=== PATIENT | male | born 1955 | race Caucasian/White ===

== ENCOUNTER 2023-04-14 11:47 | Inpatient (IN) | payer MEDICARE, OTHER ==
[2023-04-14] VITALS (18 sets, daily range): BP systolic 117–162; BP diastolic 59–96; PULSE 55–85; RESP 9–19; O2SAT 93–96
[~2023-04-14] VITALS: Ht 167.6 cm; Wt 86.0 kg
[~2023-04-14 11:47] MED LIST: LIDOcaine 2% (20 mg/ml) 5ml cardiac syringe ONE; NORepinephrine bitart. inj. IV ONE; VANCOMYCIN 1,500MG in normal saline IV soln 300 ML IV ONE; albumin (human) 25% 100 ML IV solution IV ONE; aminocaproic acid 250 MG/1 ML inj. ONE; calcium chloride 100 MG/1 ML inj IV ONE; furosemide 40mg/4ml inj ONE; heparin 1,000 units/ml 10ml inj ONE; heparin 10,000 units/1 ML INJ ONE; heparin, porcine-25,000 units/D5-250ml premix IV ONE; magnesium sulf 1 GM/2 ML ONE; mannitol 12.5gm/50mL VIAL IV ONE; methylPREDNISolone sod. succ. 500mg inj ONE; sodium bicarbonate (8.4%) 1 mEq/ml syringe ONE
[2023-04-14] MEDS ORDERED: metoprolol tartrate 50mg tablet PO ONE (12:00)
--- NOTE | 2023-04-14 12:03 | NUR ---
HEPARIN IV PREPARED/HUNG P/T PT GOING TO COMBINATION BUILDING INSPECTOR. BOLUS WAS GIVEN HEPARIN DRIP WILL BE STARTED BY COMBINATION BUILDING INSPECTOR. RN UNABLE TO START D/T PT TAKEN TO COMBINATION BUILDING INSPECTOR EMERGENTLY.
--- NOTE | 2023-04-14 12:03 | NUR ---
PT TAKEN TO TELECASTING TECHNICIAN EMERGENTLY LOPRESSOR COULD NOT BE GIVEN D/T THE PT HAD TO GO TO TELECASTING TECHNICIAN. 4000 UNIT BOLUS OF HEPARIN ADMIN P/T BEING TRANSFERRED.
[2023-04-14] MEDS ORDERED: heparin 10,000 units/1 ML INJ IV ONE (12:05)
[2023-04-14] MEDS ORDERED: metoprolol tartrate 25mg tablet PO ONE (12:05)
[2023-04-14] MEDS ORDERED: heparin 25,000 UNIT/250ml bag 250 ML IV PRN ×3 (12:05→15:36)
[2023-04-14 12:10] LABS: BASOPHILS # (AUTO) 0.1 X10'3 (0-0.2); BASOPHILS % (AUTO) 0.6 % (0-1); EOSINOPHILS # (AUTO) 0.1 X10'3 (0-0.9); EOSINOPHILS % (AUTO) 0.8 % (0-6); HEMATOCRIT 44.8 % (42.0-52.0); HEMOGLOBIN 14.9 g/dl (14.0-17.9); LYMPHOCYTES # (AUTO) 0.9 X10'3 (1.1-4.8); LYMPHOCYTES % (AUTO) 7.4 % (21-51); MEAN CORPUSCULAR HEMOGLOBIN 29.6 PG (27.0-31.0); MEAN CORPUSCULAR HGB CONC 33.3 g/dL (33.0-36.5); MEAN CORPUSCULAR VOLUME 88.9 FL (78-98); MEAN PLATELET VOLUME 8.7 FL (7.4-10.4); MONOCYTES # (AUTO) 0.7 X10'3 (0-0.9); MONOCYTES % (AUTO) 5.8 % (2-12); NEUTROPHILS # (AUTO) 10.7 X10'3 (1.8-7.7); NEUTROPHILS % (AUTO) 85.4 % (42-75); PLATELET COUNT 199 X10'3 (140-440); RED BLOOD COUNT 5.04 X10'6 (4.70-6.10); RED CELL DISTRIBUTION WIDTH 13.4 % (11.5-14.5); WHITE BLOOD COUNT 12.6 X10'3 (4.5-11.0)
--- NOTE | 2023-04-14 12:10 | NUR ---
RN UNABLE TO COMPLETE FULL ASSESSMENT D/T PT TAKEN TO METROLOGY MANAGER EMERGENTLY
[2023-04-14] MEDS ORDERED: LIDOcaine 1% (10mg/ml)w/preservative inj. 20ml MDV ONE (12:18)
[2023-04-14] MEDS ORDERED: fentaNYL/PF 50MCG/1 ML 2ML syringe ONE ×2 (12:21→14:41)
[2023-04-14] MEDS ORDERED: midazolam 1 mg/ML 2ml injection ONE ×2 (12:21→14:41)
[2023-04-14] MEDS ORDERED: iohexol 350MG/ML 100ml bottle IV ONE ×3 (12:24→14:41)
[2023-04-14 12:40] LABS: ALANINE AMINOTRANSFERASE 32 U/L (12-78); ALBUMIN 3.9 G/DL (3.4-5.0); ALBUMIN/GLOBULIN RATIO 1.1 (1.1-1.5); ALKALINE PHOSPHATASE 76 IU/L (46-116); ANION GAP 10 (8-16); ASPARTATE AMINO TRANSFERASE 28 U/L (10-37); BILIRUBIN,TOTAL 0.7 MG/DL (0.1-1.0); BLOOD UREA NITROGEN 23 MG/DL (7-18); BUN/CREATININE RATIO 19.5 (10.0-20.0); CALCIUM 9.9 MG/DL (8.5-10.1); CHLORIDE 102 MMOL/L (99-107); CREATININE 1.18 MG/DL (0.60-1.10); GLUCOSE 159 MG/DL (70-104); PRO BRAIN NATRIURETIC PEPTIDE 678 PG/ML (0-125); SODIUM 139 MMOL/L (135-145); TOTAL CARBON DIOXIDE 26.9 MMOL/L (24-32); TOTAL PROTEIN 7.5 G/DL (6.4-8.2); eCRCL 57 ML/MIN; eGFR 61 ML/MIN
[2023-04-14 12:46] LABS: POTASSIUM 2.9 MMOL/L (3.5-5.1)
[2023-04-14] MEDS ORDERED: potassium Cl 20mEq/100mL bag 100 ML IV ONE (12:46)
[2023-04-14] MEDS ORDERED: LIDOcaine 1% (10mg/ml) 2ml vial ONE (14:40)
[2023-04-14] MEDS ORDERED: verapamil 2.5 mg/ml inj IV ONE (14:40)
[2023-04-14] MEDS ORDERED: heparin 1,000unit/ml 10ml vial 10 ML ONE (14:41)
[2023-04-14] MEDS ORDERED: nitroGLYCERIN 500mcg/5mL D5W 5 ML IV ONE (14:41)
[2023-04-14] MEDS ORDERED: heparin 10,000 units/1 ML INJ IV PRN (14:55)
[2023-04-14] MEDS ORDERED: potassium Cl 20 mEq SR tablet PO PRN (15:10)
[2023-04-14] MEDS ORDERED: MESSAGE TO NURSING PO ONE ×4 (15:10)
[2023-04-14] MEDS ORDERED: magnesium 4gm in 100ml NS 100 ML IV PRN (15:10)
[2023-04-14] MEDS ORDERED: potassium CL 10mEq/100ml bag 100 ML IV PRN (15:10)
[2023-04-14] MEDS ORDERED: potassium Cl 40MEQ/270ML bag 250 ML IV PRN (15:10)
[2023-04-14] MEDS ORDERED: potassium Cl 40MEQ/1/2NS 520ml 520 ML IV PRN (15:10)
[2023-04-14] MEDS ORDERED: potassium Cl 20mEq/100mL bag 100 ML IV PRN (15:10)
[2023-04-14] MEDS ORDERED: magnesium 2GM in 50ml NS 50 ML IV PRN (15:10)
[2023-04-14] MEDS ORDERED: normal saline 1000ml 1,000 ML IV SCH (15:15)
[2023-04-14] MEDS ORDERED: vancomycin/NS 1 GM ADD-VANTAGE 250 ML IV ONE (15:20)
[2023-04-14 15:41] LABS: BASOPHILS # (AUTO) 0.1 X10'3 (0-0.2); BASOPHILS % (AUTO) 0.5 % (0-1); EOSINOPHILS % (AUTO) 0.1 % (0-6); HEMOGLOBIN 14.4 g/dl (14.0-17.9); LYMPHOCYTES # (AUTO) 0.6 X10'3 (1.1-4.8); LYMPHOCYTES % (AUTO) 4.5 % (21-51); MEAN CORPUSCULAR HEMOGLOBIN 29.6 PG (27.0-31.0); MEAN CORPUSCULAR HGB CONC 33.4 g/dL (33.0-36.5); MEAN CORPUSCULAR VOLUME 88.5 FL (78-98); MEAN PLATELET VOLUME 8.7 FL (7.4-10.4); MONOCYTES # (AUTO) 0.4 X10'3 (0-0.9); MONOCYTES % (AUTO) 3.1 % (2-12); NEUTROPHILS % (AUTO) 91.8 % (42-75); PLATELET COUNT 172 X10'3 (140-440); RED BLOOD COUNT 4.86 X10'6 (4.70-6.10); RED CELL DISTRIBUTION WIDTH 13.6 % (11.5-14.5); WHITE BLOOD COUNT 13.1 X10'3 (4.5-11.0)
[2023-04-14] MEDS ORDERED: aspirin 81mg tab.chew PO ONE (15:45)
[2023-04-14] MEDS ORDERED: ASPI-1071 PO (15:51)
[2023-04-14] MEDS ORDERED: AMLO5TAB16 PO (15:53)
[2023-04-14] MEDS ORDERED: LOSA-415 PO (15:53)
[2023-04-14] MEDS ORDERED: PRAV80TA3 PO (15:53)
[2023-04-14] MEDS ORDERED: LEVO137T2 PO (15:53)
[2023-04-14 16:03] LABS: INR 1.1 INR; PROTHROMBIN TIME 11.3 SECONDS (9.0-12.0)
[2023-04-14] MEDS ORDERED: MESSAGE TO PHARMACY IJ ONE (16:10)
[2023-04-14] MEDS ORDERED: ondansetron 4mg rapidly disintigrating tab PO PRN (16:10)
[2023-04-14] MEDS ORDERED: TERA1CAP4 PO (16:21)
[2023-04-14] MEDS ORDERED: ringers solution, lacted 1,000 ML IV ONE (16:55)
--- NOTE | 2023-04-14 18:02 | NUR ---
Called Dr. Hamilton patton at [phone] 04/15/23
--- NOTE | 2023-04-14 18:05 | NUR ---
Problems reprioritized. Patient report given, questions answered & plan of care reviewed with Andie CHAN.
[2023-04-14 18:29] LABS: ALANINE AMINOTRANSFERASE 35 U/L (12-78); ALBUMIN 3.6 G/DL (3.4-5.0); ALKALINE PHOSPHATASE 77 IU/L (46-116); ANION GAP 10 (8-16); ASPARTATE AMINO TRANSFERASE 58 U/L (10-37); BILIRUBIN,TOTAL 0.5 MG/DL (0.1-1.0); BLOOD UREA NITROGEN 16 MG/DL (7-18); BUN/CREATININE RATIO 17.2 (10.0-20.0); CALCIUM 9.1 MG/DL (8.5-10.1); CHLORIDE 105 MMOL/L (99-107); CREATININE 0.93 MG/DL (0.60-1.10); GLUCOSE 101 MG/DL (70-104); POTASSIUM 3.4 MMOL/L (3.5-5.1); SODIUM 140 MMOL/L (135-145); TOTAL PROTEIN 7.2 G/DL (6.4-8.2); eCRCL 68 ML/MIN; eGFR 81 ML/MIN
[2023-04-14] MEDS ORDERED: mupirocin 2% nasal ointment 1gm UD NS SCH (20:00)
[2023-04-14] MEDS: HYDROcodone/acetaminophen 5mg/325mg tablet PO PRN (20:56)
[2023-04-14] MEDS ORDERED: atropine 0.1mg/ml 10ml syringe ONE (20:59)
--- NOTE | 2023-04-14 21:00 | NUR ---
electrolytes replaced per protocol
--- NOTE | 2023-04-14 21:57 | NUR ---
I Have received report and assumed care of a 67 year old male admitted from [facility] on an IABP to the rt groin with 1:1 rate setting. pt is in a sr/sb rate down to lower 50's. Pt is on a heparin drip in place labs sent and will adjust per md orders. Cross and type sent to the lab blood products ready for pts CABG in the am. Pt has a relevant history of HTN, HLD, CAD with a past OR with stents, and back surgery. Pt had a syncope episode today while camping. Pt fell striking his face on the pavement, pts eyes are equile and symmetrical. Hand pole peeler equile in strength and quality. Distal pulses palp bilate. 1999 pt complaining of shoulder pain, spoke to Dr. Villasenor, orders received for [place] 5/325 po q 6 hours. Addendum: 04/15/23 at 0018 by Mai Mckee RN I received report at 1830 on Apr 14 2023
--- NOTE | 2023-04-14 22:30 | NUR ---
Pt had a brief moment of dizzyness, heart rate dropped to 40 remained in SB. denied chest pain and discomfort. this lasted only about 2 min, no ekg changes noted
[2023-04-14 23:42] LABS: ABG BASE EXCESS -1.9 mmol/L (-2.0-2.0); ABG HCO3 22.1 mmol/L (22.0-26.0); ABG OXYGEN SATURATION 98.2 % (94-97); ABG PCO2 (T) 36.8 mmHg (35.0-48.0); ABG PO2 (T) 113.1 mmHg (75.0-100.0); ALLEN'S TEST POSITIVE; FCOHb 0.6 % (0.0-3.9); FHHb 1.8 % (0.0-5.0); FLOW 2 L/min; FMetHb 0.3 % (0.0-1.5); FO2Hb 97.3 % (94-97); MODE NASAL CANNULA; PATIENT TEMPERATURE 37.6; TOTAL HEMOGLOBIN 14.2 G/dl (14.0-17.9)
[2023-04-15] VITALS (29 sets, daily range): BP systolic 97–145; BP diastolic 48–83; PULSE 55–68; RESP 10–18; O2SAT 93–100
[2023-04-15 02:07] LABS: BASOPHILS # (AUTO) 0.1 X10'3 (0-0.2); BASOPHILS % (AUTO) 0.7 % (0-1); EOSINOPHILS % (AUTO) 0.1 % (0-6); HEMATOCRIT 39.8 % (42.0-52.0); HEMOGLOBIN 13.5 g/dl (14.0-17.9); LYMPHOCYTES # (AUTO) 1.4 X10'3 (1.1-4.8); LYMPHOCYTES % (AUTO) 11.5 % (21-51); MEAN CORPUSCULAR HEMOGLOBIN 29.9 PG (27.0-31.0); MEAN CORPUSCULAR HGB CONC 33.8 g/dL (33.0-36.5); MEAN CORPUSCULAR VOLUME 88.5 FL (78-98); MEAN PLATELET VOLUME 8.7 FL (7.4-10.4); MONOCYTES # (AUTO) 0.7 X10'3 (0-0.9); MONOCYTES % (AUTO) 5.8 % (2-12); NEUTROPHILS # (AUTO) 9.8 X10'3 (1.8-7.7); NEUTROPHILS % (AUTO) 81.9 % (42-75); PLATELET COUNT 165 X10'3 (140-440); RED CELL DISTRIBUTION WIDTH 13.8 % (11.5-14.5)
[2023-04-15 02:20] LABS: ALANINE AMINOTRANSFERASE 35 U/L (12-78); ALBUMIN 3.3 G/DL (3.4-5.0); ALKALINE PHOSPHATASE 67 IU/L (46-116); ANION GAP 9 (8-16); ASPARTATE AMINO TRANSFERASE 100 U/L (10-37); BILIRUBIN,TOTAL 0.6 MG/DL (0.1-1.0); BLOOD UREA NITROGEN 16 MG/DL (7-18); BUN/CREATININE RATIO 17.8 (10.0-20.0); CALCIUM 9.2 MG/DL (8.5-10.1); CHLORIDE 106 MMOL/L (99-107); GLUCOSE 111 MG/DL (70-104); MAGNESIUM 2.1 MG/DL (1.5-2.4); PHOSPHORUS 3.8 MG/DL (2.3-4.5); POTASSIUM 3.9 MMOL/L (3.5-5.1); SODIUM 139 MMOL/L (135-145); TOTAL CARBON DIOXIDE 24.5 MMOL/L (24-32); TOTAL PROTEIN 6.6 G/DL (6.4-8.2); eCRCL 70 ML/MIN; eGFR 84 ML/MIN
[2023-04-15] MEDS: HYDROcodone/acetaminophen 5mg/325mg tablet PO PRN (02:27)
[2023-04-15] MEDS: Insulin Reg/NS 100units/100mL 100 ML IV SCH (05:30)
[2023-04-15] MEDS ORDERED: dextrose 50%-water 50ml dispensing syringe IV PRN ×2 (05:30→12:15)
[2023-04-15] MEDS ORDERED: insulin glargine (Lantus) pen - multi-dose SQ PRN ×2 (05:30→12:15)
[2023-04-15] MEDS ORDERED: ceFAZolin inj. 2,000 MG in dextrose 5%-water 100 ML IV ONE (05:30)
[2023-04-15] MEDS ORDERED: LORazepam 2 mg/ml vial IV ONE (06:00)
--- NOTE | 2023-04-15 06:06 | NUR ---
chlorhexidine bath given after hair clip removal. pt medicated as needed for pain.
--- NOTE | 2023-04-15 06:16 | NUR ---
report given to rec rn plan of care reviewed
--- NOTE | 2023-04-15 06:42 | NUR ---
Patient in room CICU 2014. I have received report from ROCIO uAgustin and had the opportunity to ask questions and assume patient care.
--- NOTE | 2023-04-15 06:43 | NUR ---
Plan - CABG this am. pre-op in process.
[2023-04-15] MEDS ORDERED: ceFAZolin 1000mg inj ONE (06:59)
[2023-04-15] MEDS ORDERED: vancomycin 1,000mg inj ONE ×2 (06:59→07:25)
[2023-04-15] MEDS ORDERED: epiNEPHrine 1 mg/ml inj ONE ×2 (06:59→11:51)
[2023-04-15] MEDS ORDERED: BUPIVAcaine 0.5% inj/PF 30 ML ONE ×2 (06:59→09:17)
[2023-04-15] MEDS ORDERED: BUPIVAcaine 0.5% inj/PF 30 ml vial IJ ONE (07:00)
[2023-04-15] MEDS ORDERED: heparin 10,000 units/1 ML INJ IV ONE (07:00)
[2023-04-15] MEDS ORDERED: ceFAZolin 1000mg inj IR ONE (07:00)
[2023-04-15] MEDS ORDERED: papaverine 30 mg/ml 2ml inj. IA ONE (07:00)
[2023-04-15] MEDS ORDERED: epiNEPHrine 1 MG/ML 1 ml ampule **BRONCH ONLY SQ ONE (07:00)
[2023-04-15] MEDS ORDERED: atorvastatin 20mg tablet PO SCH (08:00)
[2023-04-15] MEDS ORDERED: papaverine 30 mg/ml 2ml inj. ONE (08:00)
[2023-04-15] MEDS ORDERED: heparin 10,000 units/1 ML INJ ONE (08:00)
[2023-04-15] MEDS ORDERED: midazolam 1 mg/ML 2ml injection ONE (08:06)
[2023-04-15] MEDS ORDERED: SUfentanil 50mcg/ml 1ml amp IV ONE (08:06)
--- NOTE | 2023-04-15 08:11 | NUR ---
Patient off to CVOR with CVOR team. Patient stable remained on balloon pump.
[2023-04-15] MEDS ORDERED: isoflurane 100ml inhalation liquid IH ONE (08:15)
[2023-04-15] MEDS ORDERED: protamine sulf. 10mg/ml inj. IV ONE (08:15)
[2023-04-15] MEDS ORDERED: LIDOcaine 2% (20mg/ml) 5ml vial ONE ×2 (08:15→11:51)
[2023-04-15] MEDS ORDERED: nitroGLYCERIN in D5W 50mg/250ml (Tridil) infusion IV ONE (08:15)
[2023-04-15] MEDS ORDERED: amiodarone in dextrose, iso-osm 360mg/200ml bag IV ONE (08:15)
[2023-04-15] MEDS ORDERED: NORepinephrine 8 MG in NS 250 ML BAG (32 mcg/ml) IV ONE (08:15)
[2023-04-15] MEDS ORDERED: aspirin 81mg tab.chew PO SCH (08:30)
[2023-04-15 09:06] LABS: ABG BASE EXCESS -1.4 mmol/L (-2.0-2.0); ABG HCO3 23.5 mmol/L (22.0-26.0); ABG OXYGEN SATURATION 99.4 % (94-97); ABG PCO2 40.2 mmHg (35.0-48.0); ABG PH 7.384 (7.340-7.440); ABG PO2 390.8 mmHg (75.0-100.0); CL (ABG) 105 mmol/L (99-107); FCOHb 0.3 % (0.0-3.9); FHHb 0.6 % (0.0-5.0); FMetHb 0.3 % (0.0-1.5); FO2Hb 98.8 % (94-97); GLUCOSE (ABG) 118 mg/dl (70-104); IONIZED CA (ABG) 1.17 mmol/L (1.10-1.30); K (ABG) 3.3 mmol/L (3.5-5.1); TOTAL HEMOGLOBIN 13.1 G/dl (14.0-17.9)
[2023-04-15] MEDS ORDERED: MESSAGE TO NURSING PO ONE (10:00)
[2023-04-15 10:15] LABS: ABG BASE EXCESS 0.7 mmol/L (-2.0-2.0); ABG HCO3 25.1 mmol/L (22.0-26.0); ABG OXYGEN SATURATION 98.8 % (94-97); ABG PCO2 39.1 mmHg (35.0-48.0); ABG PH 7.425 (7.340-7.440); ABG PO2 362.6 mmHg (75.0-100.0); CL (ABG) 102 mmol/L (99-107); FCOHb 0.2 % (0.0-3.9); FHHb 1.2 % (0.0-5.0); FMetHb 0.3 % (0.0-1.5); FO2Hb 98.3 % (94-97); GLUCOSE (ABG) 107 mg/dl (70-104); K (ABG) 3.4 mmol/L (3.5-5.1); TOTAL HEMOGLOBIN 9.8 G/dl (14.0-17.9)
[2023-04-15] MEDS ORDERED: ipratropium/albuterol 3ml nebule IH PRN (10:25)
[2023-04-15 10:45] LABS: ABG BASE EXCESS VENOUS -3.8 mmol/L (-2.0 - 2.0); ABG HCO3 VENOUS 22.1 mmol/L (21.0-28.0); ABG OXYGEN SATURATION VENOUS 84.1 % (75 - 99 %); ABG PCO2 VENOUS 43.5 mmHg (41.0-54.0); ABG PH (VENOUS) 7.324 (7.310-7.450); ABG PO2 VENOUS 48.1 mmHg (25.0-35.0); CL (ABG) 100 mmol/L (99-107); FCOHb VENOUS 0.3 %; FHHb VENOUS 15.8 %; FMetHb VENOUS 0.3 % (0.0 - 0.5); FO2Hb VENOUS 83.6 %; GLUCOSE (ABG) 139 mg/dl (70-104); IONIZED CA (ABG) 1.09 mmol/L (1.10-1.30); K (ABG) 3.5 mmol/L (3.5-5.1); TOTAL HEMOGLOBIN 10.6 G/dl (14.0-17.9)
[2023-04-15 10:57] LABS: ABG BASE EXCESS -2.2 mmol/L (-2.0-2.0); ABG HCO3 22.7 mmol/L (22.0-26.0); ABG PCO2 39.4 mmHg (35.0-48.0); ABG PH 7.379 (7.340-7.440); CL (ABG) 104 mmol/L (99-107); FCOHb 0.3 % (0.0-3.9); FMetHb 0.3 % (0.0-1.5); FO2Hb 98.4 % (94-97); GLUCOSE (ABG) 163 mg/dl (70-104); IONIZED CA (ABG) 1.06 mmol/L (1.10-1.30); K (ABG) 3.8 mmol/L (3.5-5.1); TOTAL HEMOGLOBIN 10.9 G/dl (14.0-17.9)
[2023-04-15 11:24] LABS: ACT @ 1.70 U 286 SEC (193-297); ACT @ 2.84 U 444 SEC (260-420); BASELINE ACT 142 SEC (101-148)
[2023-04-15 11:29] LABS: ABG BASE EXCESS -4.3 mmol/L (-2.0-2.0); ABG HCO3 21.2 mmol/L (22.0-26.0); ABG OXYGEN SATURATION 88.4 % (94-97); ABG PCO2 40.8 mmHg (35.0-48.0); ABG PH 7.334 (7.340-7.440); ABG PO2 56.4 mmHg (75.0-100.0); CL (ABG) 103 mmol/L (99-107); FCOHb 0.3 % (0.0-3.9); FHHb 11.5 % (0.0-5.0); FMetHb 0.3 % (0.0-1.5); FO2Hb 87.9 % (94-97); GLUCOSE (ABG) 121 mg/dl (70-104); IONIZED CA (ABG) 1.25 mmol/L (1.10-1.30); K (ABG) 3.5 mmol/L (3.5-5.1); TOTAL HEMOGLOBIN 10.8 G/dl (14.0-17.9)
[2023-04-15] MEDS ORDERED: rocuronium 10mg/ml inj IV ONE (11:51)
[2023-04-15] MEDS ORDERED: etomidate 2mg/ml inj. ONE (11:51)
[2023-04-15] MEDS ORDERED: phenylephrine 10mg/ml inj. -priapism dosing ONE (11:51)
[2023-04-15] MEDS ORDERED: acetaminophen 1,000mg/100ml IV 100 ML IV ONE (11:51)
[2023-04-15] MEDS ORDERED: Insulin Reg/NS 100units/100mL 100 ML IV SCH (12:15)
[2023-04-15] MEDS ORDERED: magnesium 4gm in 100ml NS 100 ML IV PRN (12:15)
[2023-04-15] MEDS ORDERED: normal saline 250ml IV soln 250 ML IV PRN (12:15)
[2023-04-15] MEDS ORDERED: potassium Cl 40MEQ/1/2NS 520ml 520 ML IV PRN (12:15)
[2023-04-15] MEDS ORDERED: sodium phosphate inj. 15 MMOL in dextrose 5%-water 250 ML IV PRN (12:15)
[2023-04-15] MEDS ORDERED: morphine 2 MG/ML inj. syringe IV PRN (12:15)
[2023-04-15] MEDS ORDERED: nitroGLYCERIN-Tridil 50MG/D5W 250 ML IV PRN (12:15)
[2023-04-15] MEDS ORDERED: potassium Cl 40MEQ/270ML bag 250 ML IV PRN (12:15)
[2023-04-15] MEDS ORDERED: ondansetron/PF 4mg/2ml inj IV PRN (12:15)
[2023-04-15] MEDS: sodium chloride 0.45% 1,000 ML IV SCH (12:15)
[2023-04-15] MEDS ORDERED: magnesium 2GM in 50ml NS 50 ML IV PRN (12:15)
[2023-04-15] MEDS ORDERED: potassium Cl 20 mEq SR tablet PO PRN (12:15)
[2023-04-15] MEDS ORDERED: magnesium hydroxide 30ml (MOM) UD suspension PO PRN (12:15)
[2023-04-15] MEDS ORDERED: Neutra Phos packet PO PRN (12:15)
[2023-04-15] MEDS ORDERED: niCARDipine-NS 40mg/200ml IVPB 200 ML IV PRN (12:15)
[2023-04-15] MEDS ORDERED: mineral oil 133ml enema RC PRN (12:15)
[2023-04-15] MEDS ORDERED: potassium CL 10mEq/100ml bag 100 ML IV PRN (12:15)
[2023-04-15] MEDS ORDERED: bisacodyl 10mg suppository rectal RC PRN (12:15)
[2023-04-15] MEDS ORDERED: acetaminophen 325mg tablet PO PRN ×2 (12:15)
[2023-04-15] MEDS ORDERED: metoclopramide 5 mg/ml inj IV PRN (12:15)
[2023-04-15] MEDS ORDERED: sodium phosphate inj. 30 MMOL in dextrose 5%-water 250 ML IV PRN (12:15)
--- NOTE | 2023-04-15 12:26 | NUR ---
CABG Consult: Pt s/p CABGx4 today per EMR; would benefit from high protein/heart healthy diet eds once appropriate post-op prior to discharge. Addendum: 04/15/23 at [address] Amended: Links added.
[2023-04-15 12:44] LABS: ABG BASE EXCESS -1.9 mmol/L (-2.0-2.0); ABG HCO3 22.8 mmol/L (22.0-26.0); ABG OXYGEN SATURATION 99.3 % (94-97); ABG PCO2 (T) 36.5 mmHg (35.0-48.0); ABG PH (T) 7.408 (7.340-7.440); ABG PO2 (T) 227.2 mmHg (75.0-100.0); FCOHb 0.1 % (0.0-3.9); FHHb 0.7 % (0.0-5.0); FMetHb 0.3 % (0.0-1.5); FO2Hb 98.9 % (94-97); MODE VENT - SIMV; PATIENT TEMPERATURE 35.8; PEEP 5 cm H2O; RESPIRATORY RATE 12 b/min; TIDAL VOLUME 550 mL; TOTAL HEMOGLOBIN 11.4 G/dl (14.0-17.9)
[2023-04-15 12:58] LABS: BASOPHILS % (AUTO) 0.2 % (0-1); EOSINOPHILS # (AUTO) 0.1 X10'3 (0-0.9); EOSINOPHILS % (AUTO) 0.5 % (0-6); HEMATOCRIT 30.6 % (42.0-52.0); HEMOGLOBIN 10.2 g/dl (14.0-17.9); LYMPHOCYTES # (AUTO) 0.8 X10'3 (1.1-4.8); LYMPHOCYTES % (AUTO) 6.4 % (21-51); MEAN CORPUSCULAR HEMOGLOBIN 29.8 PG (27.0-31.0); MEAN CORPUSCULAR HGB CONC 33.4 g/dL (33.0-36.5); MEAN CORPUSCULAR VOLUME 89.3 FL (78-98); MEAN PLATELET VOLUME 8.6 FL (7.4-10.4); MONOCYTES # (AUTO) 0.8 X10'3 (0-0.9); MONOCYTES % (AUTO) 6.4 % (2-12); NEUTROPHILS # (AUTO) 10.7 X10'3 (1.8-7.7); NEUTROPHILS % (AUTO) 86.5 % (42-75); PLATELET COUNT 108 X10'3 (140-440); RED BLOOD COUNT 3.43 X10'6 (4.70-6.10); RED CELL DISTRIBUTION WIDTH 13.5 % (11.5-14.5); WHITE BLOOD COUNT 12.4 X10'3 (4.5-11.0)
[2023-04-15 13:08] LABS: APTT 30 SECONDS (22-32); FIBRINOGEN 253 MG/DL (177-424); INR 1.2 INR; PROTHROMBIN TIME 12.7 SECONDS (9.0-12.0)
[2023-04-15 13:10] LABS: ALANINE AMINOTRANSFERASE 27 U/L (12-78); ALBUMIN 2.9 G/DL (3.4-5.0); ALBUMIN/GLOBULIN RATIO 1.4 (1.1-1.5); ALKALINE PHOSPHATASE 45 IU/L (46-116); ANION GAP 9 (8-16); ASPARTATE AMINO TRANSFERASE 85 U/L (10-37); BILIRUBIN,TOTAL 1.1 MG/DL (0.1-1.0); BLOOD UREA NITROGEN 14 MG/DL (7-18); BUN/CREATININE RATIO 15.4 (10.0-20.0); CALCIUM 8.6 MG/DL (8.5-10.1); CHLORIDE 108 MMOL/L (99-107); CREATININE 0.91 MG/DL (0.60-1.10); GLUCOSE 96 MG/DL (70-104); MAGNESIUM 2.1 MG/DL (1.5-2.4); SODIUM 142 MMOL/L (135-145); TOTAL CARBON DIOXIDE 24.6 MMOL/L (24-32); eCRCL 69 ML/MIN; eGFR 83 ML/MIN
[2023-04-15 13:13] LABS: POTASSIUM 2.8 MMOL/L (3.5-5.1)
[2023-04-15 13:14] LABS: PHOSPHORUS 1.2 MG/DL (2.3-4.5)
[2023-04-15] MEDS: potassium Cl 20mEq/100mL bag 100 ML IV PRN ×4 (13:16→16:56)
[2023-04-15] MEDS: morphine 4 MG/ML inj SYRINge IV PRN ×4 (13:29→21:25)
[2023-04-15] MEDS: gabapentin 300mg capsule PO SCH ×2 (13:49→19:30)
[2023-04-15] MEDS: albumin (Human) 5% 250ml 250 ML IV PRN ×3 (14:29→17:21)
[2023-04-15] MEDS: amiodarone/D5 360MG/200ML BAG 200 ML IV SCH (15:52)
[2023-04-15] MEDS: ceFAZolin/D5W- 1GM premix 50 ML IV SCH (15:52)
[2023-04-15 15:54] LABS: ABG BASE EXCESS -5.8 mmol/L (-2.0-2.0); ABG HCO3 20.7 mmol/L (22.0-26.0); ABG OXYGEN SATURATION 97.2 % (94-97); ABG PCO2 (T) 44.3 mmHg (35.0-48.0); ABG PH (T) 7.287 (7.340-7.440); ABG PO2 (T) 101.6 mmHg (75.0-100.0); FCOHb 0.4 % (0.0-3.9); FHHb 2.8 % (0.0-5.0); FMetHb 0.3 % (0.0-1.5); FO2Hb 96.5 % (94-97); MODE VENT - SIMV; PATIENT TEMPERATURE 36.8; PEEP 5 cm H2O; TOTAL HEMOGLOBIN 11.6 G/dl (14.0-17.9)
[2023-04-15] MEDS: HYDROcodone/acetaminophen 10/325mg tab PO PRN (19:29)
[2023-04-15 19:33] LABS: RED BLOOD COUNT 3.39 X10'6 (4.70-6.10)
[2023-04-15 19:34] LABS: ALBUMIN 3.8 G/DL (3.4-5.0); ANION GAP 10 (8-16); BLOOD UREA NITROGEN 18 MG/DL (7-18); BUN/CREATININE RATIO 14.4 (10.0-20.0); CALCIUM 8.8 MG/DL (8.5-10.1); CHLORIDE 106 MMOL/L (99-107); CREATININE 1.25 MG/DL (0.60-1.10); GLUCOSE 215 MG/DL (70-104); MAGNESIUM 2.5 MG/DL (1.5-2.4); POTASSIUM 4.2 MMOL/L (3.5-5.1); SODIUM 141 MMOL/L (135-145); eCRCL 50 ML/MIN; eGFR 57 ML/MIN
[2023-04-15 19:35] LABS: BASOPHILS % (AUTO) 0 % (0-1); EOSINOPHILS % (AUTO) 0 % (0-6); HEMATOCRIT 30.4 % (42.0-52.0); HEMOGLOBIN 10.1 g/dl (14.0-17.9); LYMPHOCYTES # (AUTO) 0.3 X10'3 (1.1-4.8); LYMPHOCYTES % (AUTO) 1.7 % (21-51); MEAN CORPUSCULAR HEMOGLOBIN 29.8 PG (27.0-31.0); MEAN CORPUSCULAR HGB CONC 33.3 g/dL (33.0-36.5); MEAN CORPUSCULAR VOLUME 89.6 FL (78-98); MEAN PLATELET VOLUME 8.9 FL (7.4-10.4); MONOCYTES # (AUTO) 0.6 X10'3 (0-0.9); NEUTROPHILS # (AUTO) 18.1 X10'3 (1.8-7.7); NEUTROPHILS % (AUTO) 95.3 % (42-75); PLATELET COUNT 157 X10'3 (140-440); RED CELL DISTRIBUTION WIDTH 13.7 % (11.5-14.5)
[2023-04-15] MEDS: mupirocin 2% nasal ointment 1gm UD NS SCH (20:30)
[2023-04-15] MEDS: atorvastatin 10mg tablet PO SCH (20:30)
[2023-04-15] MEDS: sennosides/docusate sodium tablet PO SCH (20:30)
[2023-04-15] MEDS: vancomycin/NS 1 GM ADD-VANTAGE 250 ML IV SCH (20:30)
[2023-04-15] MEDS: Terazosin 1mg capsule PO SCH (20:32)
[2023-04-16] VITALS (25 sets, daily range): BP systolic 93–157; BP diastolic 55–71; PULSE 58–68; RESP 10–18; O2SAT 92–97
[2023-04-16] MEDS: ceFAZolin/D5W- 1GM premix 50 ML IV SCH ×4 (00:10→23:14)
[2023-04-16] MEDS: amiodarone/D5 360MG/200ML BAG 200 ML IV SCH ×2 (00:11→03:53)
[2023-04-16] MEDS: HYDROcodone/acetaminophen 10/325mg tab PO PRN ×3 (02:10→23:14)
[2023-04-16 02:54] LABS: BASOPHILS % (AUTO) 0.1 % (0-1); EOSINOPHILS % (AUTO) 0 % (0-6); HEMATOCRIT 30.6 % (42.0-52.0); HEMOGLOBIN 9.9 g/dl (14.0-17.9); LYMPHOCYTES # (AUTO) 0.4 X10'3 (1.1-4.8); LYMPHOCYTES % (AUTO) 2.1 % (21-51); MEAN CORPUSCULAR HEMOGLOBIN 29.2 PG (27.0-31.0); MEAN CORPUSCULAR HGB CONC 32.4 g/dL (33.0-36.5); MEAN PLATELET VOLUME 8.8 FL (7.4-10.4); MONOCYTES # (AUTO) 1.4 X10'3 (0-0.9); MONOCYTES % (AUTO) 7.1 % (2-12); NEUTROPHILS # (AUTO) 17.7 X10'3 (1.8-7.7); NEUTROPHILS % (AUTO) 90.7 % (42-75); PLATELET COUNT 135 X10'3 (140-440); RED CELL DISTRIBUTION WIDTH 14.1 % (11.5-14.5); WHITE BLOOD COUNT 19.5 X10'3 (4.5-11.0)
[2023-04-16 03:06] LABS: ALANINE AMINOTRANSFERASE 28 U/L (12-78); ALBUMIN 3.7 G/DL (3.4-5.0); ALBUMIN/GLOBULIN RATIO 1.5 (1.1-1.5); ALKALINE PHOSPHATASE 43 IU/L (46-116); ANION GAP 8 (8-16); ASPARTATE AMINO TRANSFERASE 72 U/L (10-37); BILIRUBIN,TOTAL 0.3 MG/DL (0.1-1.0); BLOOD UREA NITROGEN 23 MG/DL (7-18); BUN/CREATININE RATIO 15.8 (10.0-20.0); CALCIUM 9.1 MG/DL (8.5-10.1); CHLORIDE 109 MMOL/L (99-107); CREATININE 1.46 MG/DL (0.60-1.10); GLUCOSE 101 MG/DL (70-104); MAGNESIUM 2.5 MG/DL (1.5-2.4); PHOSPHORUS 4.3 MG/DL (2.3-4.5); SODIUM 144 MMOL/L (135-145); TOTAL PROTEIN 6.1 G/DL (6.4-8.2); eCRCL 43 ML/MIN; eGFR 48 ML/MIN
[2023-04-16 03:11] LABS: APTT 27 SECONDS (22-32); INR 1.1 INR; PROTHROMBIN TIME 11.7 SECONDS (9.0-12.0)
[2023-04-16] MEDS: morphine 4 MG/ML inj SYRINge IV PRN (05:37)
--- NOTE | 2023-04-16 06:22 | NUR ---
Problems reprioritized. Patient report given, questions answered & plan of care reviewed with JACY RN/ DARRELL RN.
[2023-04-16] MEDS: gabapentin 300mg capsule PO SCH ×3 (07:59→20:54)
[2023-04-16] MEDS: metoprolol tartrate 12.5mg (1/2 tablet) PO SCH ×2 (07:59→20:00)
[2023-04-16] MEDS: sennosides/docusate sodium tablet PO SCH ×2 (08:00→20:56)
[2023-04-16] MEDS: aspirin 81mg tab.chew PO SCH (08:00)
[2023-04-16] MEDS: mupirocin 2% nasal ointment 1gm UD NS SCH ×2 (08:03→20:54)
[2023-04-16] MEDS: amiodarone 200mg tablet PO SCH ×2 (08:06→20:56)
[2023-04-16] MEDS: vancomycin/NS 1 GM ADD-VANTAGE 250 ML IV SCH ×2 (08:39→20:54)
[2023-04-16] MEDS: Insulin Reg/NS 100units/100mL 100 ML IV SCH (14:50)
--- NOTE | 2023-04-16 18:15 | NUR ---
Problems reprioritized. Patient report given, questions answered & plan of care reviewed with ROCIO Arellano.
[2023-04-16] MEDS: atorvastatin 10mg tablet PO SCH (20:56)
[2023-04-16] MEDS: Terazosin 1mg capsule PO SCH (20:56)
[2023-04-16] MEDS ORDERED: Terazosin 1mg capsule PO SCH (21:00)
[2023-04-16] MEDS: sodium chloride 0.45% 1,000 ML IV SCH (22:32)
--- NOTE | 2023-04-16 23:15 | NUR ---
Awakens needing to cough. coached on stabilizing chest wall with cardiac pillow to effectively cough. C/o pain after coughing. medicated with [place] as ordered.
[2023-04-17] VITALS (22 sets, daily range): BP systolic 84–118; BP diastolic 46–81; PULSE 60–121; RESP 8–20; O2SAT 92–98
--- NOTE | 2023-04-17 00:15 | NUR ---
BPS 89, BPM 62. Sleeping very soundly at this time, BP soft, u/o approximately 35ml/hr. IV bolus 250ml NS given as ordered.
--- NOTE | 2023-04-17 01:00 | NUR ---
BP remains soft, sleeping soundly, u/o increased to 50-60 ml/hr. no further boluses given at this time
[2023-04-17 03:04] LABS: BASOPHILS % (AUTO) 0 % (0-1); EOSINOPHILS % (AUTO) 0 % (0-6); HEMATOCRIT 26.6 % (42.0-52.0); HEMOGLOBIN 8.7 g/dl (14.0-17.9); LYMPHOCYTES # (AUTO) 0.9 X10'3 (1.1-4.8); LYMPHOCYTES % (AUTO) 4.8 % (21-51); MEAN CORPUSCULAR HEMOGLOBIN 29.6 PG (27.0-31.0); MEAN CORPUSCULAR HGB CONC 32.7 g/dL (33.0-36.5); MEAN CORPUSCULAR VOLUME 90.6 FL (78-98); MEAN PLATELET VOLUME 9.3 FL (7.4-10.4); MONOCYTES # (AUTO) 1.6 X10'3 (0-0.9); MONOCYTES % (AUTO) 8.9 % (2-12); NEUTROPHILS # (AUTO) 15.8 X10'3 (1.8-7.7); NEUTROPHILS % (AUTO) 86.3 % (42-75); PLATELET COUNT 96 X10'3 (140-440); RED BLOOD COUNT 2.94 X10'6 (4.70-6.10); RED CELL DISTRIBUTION WIDTH 14.3 % (11.5-14.5); WHITE BLOOD COUNT 18.3 X10'3 (4.5-11.0)
[2023-04-17 03:10] LABS: ANION GAP 3 (8-16); BLOOD UREA NITROGEN 49 MG/DL (7-18); BUN/CREATININE RATIO 22.7 (10.0-20.0); CALCIUM 8.7 MG/DL (8.5-10.1); CHLORIDE 106 MMOL/L (99-107); CREATININE 2.16 MG/DL (0.60-1.10); GLUCOSE 135 MG/DL (70-104); MAGNESIUM 2.4 MG/DL (1.5-2.4); PHOSPHORUS 5.6 MG/DL (2.3-4.5); POTASSIUM 4.6 MMOL/L (3.5-5.1); SODIUM 137 MMOL/L (135-145); TOTAL CARBON DIOXIDE 27.6 MMOL/L (24-32); eCRCL 29 ML/MIN; eGFR 30 ML/MIN
--- NOTE | 2023-04-17 06:30 | NUR ---
Patient in room CICU 2011. I have received report from ROCIO Arellano and had the opportunity to ask questions and assume patient care.
[2023-04-17] MEDS: metoprolol tartrate 12.5mg (1/2 tablet) PO SCH ×2 (08:00→20:29)
[2023-04-17] MEDS: levoTHYROXINE 25mcg tablet PO SCH (08:15)
[2023-04-17] MEDS ORDERED: albumin (human) 25% 100 ML IV solution IV ONE (08:15)
[2023-04-17] MEDS: levoTHYROXINE 112mcg tablet PO SCH (08:15)
[2023-04-17] MEDS: amiodarone 200mg tablet PO SCH (08:15)
[2023-04-17] MEDS: gabapentin 300mg capsule PO SCH (08:16)
[2023-04-17] MEDS: aspirin 81mg tab.chew PO SCH (08:17)
[2023-04-17] MEDS: sennosides/docusate sodium tablet PO SCH ×2 (08:17→20:28)
[2023-04-17] MEDS: mupirocin 2% nasal ointment 1gm UD NS SCH (08:18)
[2023-04-17] MEDS: pantoprazole 40mg Tablet.DR PO SCH (08:18)
[2023-04-17] MEDS ORDERED: potassium Cl 20mEq/100mL bag 100 ML IV PRN (08:20)
[2023-04-17] MEDS ORDERED: potassium Cl 20 mEq SR tablet PO PRN ×2 (08:20)
[2023-04-17] MEDS ORDERED: magnesium 4gm in 100ml NS 100 ML IV PRN (08:20)
[2023-04-17] MEDS ORDERED: magnesium 2GM in 50ml NS 50 ML IV PRN (08:20)
[2023-04-17] MEDS ORDERED: HYDROcodone/acetaminophen 5mg/325mg tablet PO PRN (08:20)
[2023-04-17] MEDS ORDERED: potassium Cl 40MEQ/1/2NS 520ml 520 ML IV PRN (08:20)
[2023-04-17] MEDS ORDERED: potassium CL 10mEq/100ml bag 100 ML IV PRN (08:20)
[2023-04-17] MEDS ORDERED: potassium Cl 40MEQ/270ML bag 250 ML IV PRN (08:20)
--- NOTE | 2023-04-17 10:30 | NUR ---
Problems reprioritized. Patient report given, questions answered & plan of care reviewed with ROCIO Higuera.
--- NOTE | 2023-04-17 11:08 | NUR ---
Assumed care of pt after report from Rudy CHAN. Pt is OOB to chair, denies pain, and c/o blurred vision. After walking earlier this morning, pt went into Afib w/ RVR. Dr. Villasenor has not responded yet. Pt's remains at bedside.
[2023-04-17] MEDS ORDERED: ondansetron 4mg rapidly disintigrating tab PO PRN (11:25)
--- NOTE | 2023-04-17 11:33 | NUR ---
CABG Consult: Pt and SO present at bedside during RD visit for nutrition education. Provided written/verbal high protein and heart healthy nutrition education to Pt/SO. RD contact also provided and encouraged pt to reach out for any nutrition questions or concerns. Addendum: 04/17/23 at [address] Amended: Links added.
[2023-04-17] MEDS ORDERED: amiodarone 150mg/dext, iso-os 100 ML IV ONE (12:35)
[2023-04-17] MEDS: amiodarone/D5 360MG/200ML BAG 200 ML IV SCH ×2 (12:35→20:26)
--- NOTE | 2023-04-17 12:40 | NUR ---
ARIADNA Eagle at bedside. He was informed that he and Dr. Villasenor were called in the OR by Rudy CHAN, but no one responded. ARIADNA informed now that pt was in AF RVR since approx. 1100. Awaiting orders for Amiodarone gtt.
--- NOTE | 2023-04-17 14:05 | NUR ---
Amiodarone bolus completed and maintainence gtt started. PT walked pt. Pt stated that he felt better walking the 2nd time, and he felt more alert than this AM.
--- NOTE | 2023-04-17 15:00 | NUR ---
Dr. Villasenor at bedside. Pt has not yet voided since damaris was DC'd. Will reassess at 1730, and will scan bladder and ST if no void. Pt has been sleeping well since 1420.
--- NOTE | 2023-04-17 18:14 | NUR ---
Pt voided after napping, so no need to scan or ST cath. Pt 1 assist to dangle and ambulated to chair for dinner. Pt encouraged to increase fluids, use heart pillow, and continue IS. is at bedside. Amio gtt to be decreased at 1999. Report given to Eileen CHAN.
[2023-04-17] MEDS: magnesium Cl slow-release 64mg tablet PO SCH (20:27)
[2023-04-17] MEDS: atorvastatin 10mg tablet PO SCH (20:28)
[2023-04-17] MEDS: Terazosin 1mg capsule PO SCH (20:30)
[2023-04-18] VITALS (21 sets, daily range): BP systolic 119–159; BP diastolic 64–96; PULSE 60–112; RESP 14–25; TEMP 97.7–98.9; O2SAT 90–98
[2023-04-18 02:46] LABS: BASOPHILS % (AUTO) 0.1 % (0-1); EOSINOPHILS % (AUTO) 0 % (0-6); HEMOGLOBIN 9.2 g/dl (14.0-17.9); LYMPHOCYTES # (AUTO) 0.7 X10'3 (1.1-4.8); LYMPHOCYTES % (AUTO) 4.6 % (21-51); MEAN CORPUSCULAR HEMOGLOBIN 29.7 PG (27.0-31.0); MEAN CORPUSCULAR VOLUME 90.1 FL (78-98); MEAN PLATELET VOLUME 9.7 FL (7.4-10.4); MONOCYTES # (AUTO) 1.1 X10'3 (0-0.9); NEUTROPHILS # (AUTO) 13.7 X10'3 (1.8-7.7); NEUTROPHILS % (AUTO) 88.3 % (42-75); PLATELET COUNT 101 X10'3 (140-440); RED CELL DISTRIBUTION WIDTH 14.2 % (11.5-14.5); WHITE BLOOD COUNT 15.5 X10'3 (4.5-11.0)
[2023-04-18 02:48] LABS: ALBUMIN 2.9 G/DL (3.4-5.0); ANION GAP 3 (8-16); BLOOD UREA NITROGEN 48 MG/DL (7-18); BUN/CREATININE RATIO 31.6 (10.0-20.0); CALCIUM 8.9 MG/DL (8.5-10.1); CHLORIDE 106 MMOL/L (99-107); CREATININE 1.52 MG/DL (0.60-1.10); GLUCOSE 141 MG/DL (70-104); POTASSIUM 4.5 MMOL/L (3.5-5.1); SODIUM 137 MMOL/L (135-145); TOTAL CARBON DIOXIDE 28.3 MMOL/L (24-32); eCRCL 41 ML/MIN; eGFR 46 ML/MIN
--- NOTE | 2023-04-18 06:29 | NUR ---
Patient in room CICU 2011. I have received report from Eileen CHAN and had the opportunity to ask questions and assume patient care.
[2023-04-18] MEDS: amiodarone/D5 360MG/200ML BAG 200 ML IV SCH ×3 (06:30→19:25)
[2023-04-18] MEDS: levoTHYROXINE 112mcg tablet PO SCH (07:10)
[2023-04-18] MEDS: aspirin 81mg tab.chew PO SCH (07:10)
[2023-04-18] MEDS: levoTHYROXINE 25mcg tablet PO SCH (07:10)
[2023-04-18] MEDS: sennosides/docusate sodium tablet PO SCH ×2 (07:10→19:22)
[2023-04-18] MEDS: pantoprazole 40mg Tablet.DR PO SCH (07:10)
[2023-04-18] MEDS: magnesium Cl slow-release 64mg tablet PO SCH ×2 (07:10→21:23)
[2023-04-18] MEDS: metoprolol tartrate 12.5mg (1/2 tablet) PO SCH ×2 (07:10→21:24)
--- NOTE | 2023-04-18 10:19 | NUR ---
Problems reprioritized. Patient report given, questions answered & plan of care reviewed with Glendy CHAN.
--- NOTE | 2023-04-18 10:45 | NUR ---
[facility] I have received report from Judd CHAN and had the opportunity to ask questions and assume patient care. at bedside. call light in reach. Pt C/O not getting sleep last noc. Pt appears napish. Addendum: 04/18/23 at 1130 by Stephy Servin RN Amended: Links added.
--- NOTE | 2023-04-18 10:45 | NUR ---
Patient brought in to 3022, Glendy CHAN present.Spouse at bedside.
[2023-04-18 12:33] LABS: THYROID STIMULATING HORMONE 1.89 ulU/ml (0.34-4.50)
--- NOTE | 2023-04-18 18:21 | NUR ---
Problems reprioritized. Patient report given, questions answered & plan of care reviewed with Fco CHAN. Pt at bedside. Addendum: 04/18/23 at 1823 by Stephy Servin RN Amended: Links added.
--- NOTE | 2023-04-18 18:23 | NUR ---
Patient in room PCU 3022. I have received report from Stephy (ROCIO) and had the opportunity to ask questions and assume patient care.
--- NOTE | 2023-04-18 19:29 | NUR ---
Pt back into Atrial Fibrillation 90 to 105 BPM.
[2023-04-18] MEDS: atorvastatin 10mg tablet PO SCH (21:23)
[2023-04-18] MEDS: Terazosin 1mg capsule PO SCH (21:24)
[2023-04-19] VITALS (13 sets, daily range): BP systolic 118–148; BP diastolic 75–90; PULSE 59–109; RESP 14–19; TEMP 97.7–98.9; O2SAT 91–97
--- NOTE | 2023-04-19 04:10 | NUR ---
Pt converted back to Sinus Rhythm at approximately 0330 with HR in 60's.
[2023-04-19] MEDS: amiodarone/D5 360MG/200ML BAG 200 ML IV SCH (06:05)
--- NOTE | 2023-04-19 06:26 | NUR ---
Problems reprioritized. Patient report given, questions answered & plan of care reviewed with Brandon (RN).
[2023-04-19 06:34] LABS: BASOPHILS % (AUTO) 0 % (0-1); EOSINOPHILS # (AUTO) 0.1 X10'3 (0-0.9); HEMATOCRIT 27.9 % (42.0-52.0); HEMOGLOBIN 9.4 g/dl (14.0-17.9); LYMPHOCYTES # (AUTO) 1.2 X10'3 (1.1-4.8); LYMPHOCYTES % (AUTO) 9.8 % (21-51); MEAN CORPUSCULAR HEMOGLOBIN 30.2 PG (27.0-31.0); MEAN CORPUSCULAR HGB CONC 33.8 g/dL (33.0-36.5); MEAN CORPUSCULAR VOLUME 89.4 FL (78-98); MEAN PLATELET VOLUME 9.1 FL (7.4-10.4); MONOCYTES # (AUTO) 1.2 X10'3 (0-0.9); MONOCYTES % (AUTO) 10.2 % (2-12); NEUTROPHILS # (AUTO) 9.6 X10'3 (1.8-7.7); PLATELET COUNT 156 X10'3 (140-440); RED BLOOD COUNT 3.12 X10'6 (4.70-6.10); RED CELL DISTRIBUTION WIDTH 13.9 % (11.5-14.5); WHITE BLOOD COUNT 12.2 X10'3 (4.5-11.0)
[2023-04-19 06:39] LABS: ALBUMIN 2.6 G/DL (3.4-5.0); ANION GAP 2 (8-16); BLOOD UREA NITROGEN 29 MG/DL (7-18); BUN/CREATININE RATIO 26.9 (10.0-20.0); CALCIUM 8.6 MG/DL (8.5-10.1); CHLORIDE 106 MMOL/L (99-107); CREATININE 1.08 MG/DL (0.60-1.10); GLUCOSE 115 MG/DL (70-104); POTASSIUM 3.6 MMOL/L (3.5-5.1); SODIUM 140 MMOL/L (135-145); TOTAL CARBON DIOXIDE 31.9 MMOL/L (24-32); eCRCL 58 ML/MIN; eGFR 68 ML/MIN
--- NOTE | 2023-04-19 06:59 | NUR ---
Patient in room PCU 3022. I have received report from Deepti CHAN and had the opportunity to ask questions and assume patient care.
[2023-04-19] MEDS: magnesium Cl slow-release 64mg tablet PO SCH ×2 (08:08→21:04)
[2023-04-19] MEDS: pantoprazole 40mg Tablet.DR PO SCH (08:09)
[2023-04-19] MEDS: metoprolol tartrate 12.5mg (1/2 tablet) PO SCH (08:09)
[2023-04-19] MEDS: levoTHYROXINE 112mcg tablet PO SCH (08:10)
[2023-04-19] MEDS: levoTHYROXINE 25mcg tablet PO SCH (08:10)
[2023-04-19] MEDS: aspirin 81mg tab.chew PO SCH (08:10)
[2023-04-19] MEDS: metoprolol tartrate 25mg tablet PO SCH ×2 (08:20→21:04)
[2023-04-19] MEDS: amiodarone 200mg tablet PO SCH ×2 (11:09→21:03)
--- NOTE | 2023-04-19 18:12 | NUR ---
Problems reprioritized. Patient report given, questions answered & plan of care reviewed with Eleanor CHAN.
--- NOTE | 2023-04-19 18:30 | NUR ---
Patient in room PCU 3022. I have received report from ROCIO Taylor and had the opportunity to ask questions and assume patient care.
[2023-04-19] MEDS: atorvastatin 10mg tablet PO SCH (21:03)
[2023-04-19] MEDS: Terazosin 1mg capsule PO SCH (21:04)
[2023-04-20 02:00] VITALS: BP 144/76; PULSE 67; RESP 16; TEMP 97.9; O2SAT 96
--- NOTE | 2023-04-20 06:33 | NUR ---
Patient in room PCU 3022. I have received report from Eleanor CHAN and had the opportunity to ask questions and assume patient care.
--- NOTE | 2023-04-20 06:45 | NUR ---
Problems reprioritized. Patient report given, questions answered & plan of care reviewed with ROCIO Taylor.
[2023-04-20 06:54] LABS: ALBUMIN 2.7 G/DL (3.4-5.0); ANION GAP 2 (8-16); BLOOD UREA NITROGEN 21 MG/DL (7-18); BUN/CREATININE RATIO 21.6 (10.0-20.0); CALCIUM 8.9 MG/DL (8.5-10.1); CHLORIDE 106 MMOL/L (99-107); CREATININE 0.97 MG/DL (0.60-1.10); GLUCOSE 101 MG/DL (70-104); POTASSIUM 4.1 MMOL/L (3.5-5.1); SODIUM 139 MMOL/L (135-145); TOTAL CARBON DIOXIDE 30.7 MMOL/L (24-32); eCRCL 65 ML/MIN; eGFR 77 ML/MIN
[2023-04-20 07:06] VITALS: BP 163/86; PULSE 67; RESP 18; TEMP 98.6; O2SAT 94
[2023-04-20 07:06] LABS: BASOPHILS % (AUTO) 0.1 % (0-1); EOSINOPHILS # (AUTO) 0.2 X10'3 (0-0.9); EOSINOPHILS % (AUTO) 2.2 % (0-6); HEMATOCRIT 32.1 % (42.0-52.0); HEMOGLOBIN 10.9 g/dl (14.0-17.9); LYMPHOCYTES # (AUTO) 1.4 X10'3 (1.1-4.8); LYMPHOCYTES % (AUTO) 13.8 % (21-51); MEAN CORPUSCULAR HEMOGLOBIN 30.4 PG (27.0-31.0); MEAN CORPUSCULAR HGB CONC 33.9 g/dL (33.0-36.5); MEAN CORPUSCULAR VOLUME 89.8 FL (78-98); MEAN PLATELET VOLUME 8.3 FL (7.4-10.4); MONOCYTES # (AUTO) 1.2 X10'3 (0-0.9); MONOCYTES % (AUTO) 11.8 % (2-12); NEUTROPHILS # (AUTO) 7.5 X10'3 (1.8-7.7); NEUTROPHILS % (AUTO) 72.1 % (42-75); PLATELET COUNT 208 X10'3 (140-440); RED BLOOD COUNT 3.58 X10'6 (4.70-6.10); RED CELL DISTRIBUTION WIDTH 13.8 % (11.5-14.5); WHITE BLOOD COUNT 10.4 X10'3 (4.5-11.0)
[2023-04-20] MEDS: aspirin 81mg tab.chew PO SCH (07:30)
[2023-04-20] MEDS: magnesium Cl slow-release 64mg tablet PO SCH (07:31)
[2023-04-20] MEDS: metoprolol tartrate 25mg tablet PO SCH (07:31)
[2023-04-20] MEDS: pantoprazole 40mg Tablet.DR PO SCH (07:32)
[2023-04-20] MEDS: amiodarone 200mg tablet PO SCH (07:32)
[2023-04-20] MEDS: levoTHYROXINE 25mcg tablet PO SCH (07:33)
[2023-04-20] MEDS: levoTHYROXINE 112mcg tablet PO SCH (07:33)
[2023-04-20 07:50] VITALS: RESP 18; O2SAT 94
[2023-04-20 08:00] VITALS: RESP 16
[2023-04-20] MEDS ORDERED: clopidogrel 75mg tablet PO SCH (09:15)
[2023-04-20] MEDS ORDERED: AMI200T PO (09:39)
[2023-04-20] MEDS ORDERED: LOP25T PO (09:39)
[2023-04-20] MEDS ORDERED: TICA90TA2 PO (09:39)
[2023-04-20] MEDS ORDERED: HYDR-3964 PO (09:42)
[2023-04-20 10:58] VITALS: BP 145/80; PULSE 57; RESP 17; TEMP 98.2; O2SAT 98
--- NOTE | 2023-04-20 13:00 | NUR ---
Patient discharged at this time. All belongings were taken with family and patient at discharge. Patient IV taken out at the time of discharge canula whole and intact upon inspection. Patient was educated on new medications and instructed to pick all medications up as soon as possible. Patient did not have brilenta at discharge but was given plavix prior to leaving [place] by PA in cardiology to supervisor opening and picking and start new medication tomorrow. Patient also left with hard copy of new Rx due to computer communication issues with [facility]. Patient was educated on showering and sternal precautions. Patient family in room at the time of discharge. Patient was taken to lobby via wheelchair then left in private vehicle. Patient will follow up with own cardiology in [place] or make an appointment in [place] if needed.
== END 2023-04-20 12:49 | disposition home or self-care (01) | DRG 233 ==
LOC: ER 11:47 → CICU 2S 14:15 → PCU 3S 04-18 10:45
PROVIDERS: ADMIT Student in an Organized Health Care Education/Training Program; ATTEND Student in an Organized Health Care Education/Training Program
PROC: 4A023N7 Measurement of Cardiac Sampling and Pressure, Left Heart, Percutaneous Approach (ICD-10-PCS; principal; 2023-04-14)
PROC: 5A02210 Assistance with Cardiac Output using Balloon Pump, Continuous (ICD-10-PCS; 2023-04-14)
PROC: B246ZZ4 Ultrasonography of Right and Left Heart, Transesophageal (ICD-10-PCS; 2023-04-14)
PROC: 02JA3ZZ Inspection of Heart, Percutaneous Approach (ICD-10-PCS; 2023-04-14)
PROC: 02100Z8 Bypass Coronary Artery, One Artery from Right Internal Mammary, Open Approach (ICD-10-PCS; 2023-04-15)
PROC: 02100Z9 Bypass Coronary Artery, One Artery from Left Internal Mammary, Open Approach (ICD-10-PCS; 2023-04-15)
PROC: 021109W Bypass Coronary Artery, Two Arteries from Aorta with Autologous Venous Tissue, Open Approach (ICD-10-PCS; 2023-04-15)
PROC: 06BQ3ZZ Excision of Left Saphenous Vein, Percutaneous Approach (ICD-10-PCS; 2023-04-15)
PROC: 04QK0ZZ Repair Right Femoral Artery, Open Approach (ICD-10-PCS; 2023-04-15)
PROC: 5A1221Z Performance of Cardiac Output, Continuous (ICD-10-PCS; 2023-04-15)
DX: T82.855A Stenosis of coronary artery stent, initial encounter (principal); I21.19 ST elevation (STEMI) myocardial infarction involving other coronary artery of inferior wall; Y83.8 Other surgical procedures as the cause of abnormal reaction of the patient, or of later complication, without mention of misadventure at the time of the procedure; I25.10 Atherosclerotic heart disease of native coronary artery without angina pectoris; E78.00 Pure hypercholesterolemia, unspecified; I48.91 Unspecified atrial fibrillation; I10 Essential (primary) hypertension; I25.2 Old myocardial infarction; Y92.89 Other specified places as the place of occurrence of the external cause; Z88.0 Allergy status to penicillin; Z79.899 Other long term (current) drug therapy; Z82.49 Family history of ischemic heart disease and other diseases of the circulatory system
CPT/HCPCS: 33967; 93312; 93325; 93458; 99285; C9606; C9607; 36415; 36600; 71045; 80048; 80053; 82330; 82435; 82803; 82947; 82948; 83036; 83735; 83880; 84100; 84132; 84295; 84443; 84484; 85018; 85025; 85347; 85384; 85610; 85730; 86885; 86900; 86901; 86920; 93005; 93880; 93970; 94002; 94668; 94760; 97110; 97116; 97161; 97530; 99152; 99153; A4615; A4618; A6213; A6258; A6449; A7000; A7048; C1725; C1751; C1769; C1892; C1894; G0378; J0131; J0171; J0282; J0461; J0690; J1644; J1815; J1940; J2060; J2150; J2250; J2270; J2370; J2405; J2440; J2720; J2930; J3010; J3370; J3475; J3480; J3490; J7030; J7040; J7050; J7060; J7120; P9045; P9047; Q9967; S0020